=== PATIENT | male | born 1975 | race Caucasian/White ===

== ENCOUNTER → 2018-12-12 17:35 | Outpatient (CLI) | payer OTHER, SELFPAY ==
--- NOTE | 2018-12-12 | DI.MRI.S_ITS ---
PROCEDURE: MR HAND LT WO CON INDICATIONS: Pain at base of left thumb and between 3rd and 4th metacarpal TECHNIQUE: Noncontrast coronal T1 spin echo and T2 fast spin echo with fat saturation, axial proton density fast spin echo and T2 fast spin echo with fat saturation, sagittal T1 spin echo and STIR through the hand and fingers. COMPARISON: None. FINDINGS: Image quality: Excellent. Bones: The bones are normally aligned, without marrow contusions or fractures. No intra-osseous lesions. Interphalangeal joint(s): The accessory and proper collateral ligaments appear intact. The volar plate demonstrates normal morphology. The extensor central slips appear intact on sagittal images. Metacarpophalangeal joint(s): The accessory and proper collateral ligaments appear intact. There is edema involving the distal volar plate of first MTP joint units distal insertion suggestive of partial thickness tear in this area. Dorsal plate is intact. The sagittal bands of the extensor mabry appear normal. Extensor apparatus: The central slips insert normally on the middle phalangeal base. The conjoint and terminal tendons insert normally on the distal phalangeal bases. More proximal portions of the extensor tendons also appear normal. Flexor apparatus: The flexor digitorum superficialis and profundus tendons both appear intact in second through fifth digits. All annular and cruciform pulleys appear intact, without adjacent soft tissue edema. There is fluid surrounding tendon sheath of the flexor hallucis longus tendon at the level of the first MCP joint and first proximal phalangeal shaft, suggestive of low-grade tenosynovitis. Soft tissues: Visualized muscles demonstrate normal bulk and internal signal. No intramuscular masses identified. No ganglion cysts. IMPRESSION: 1. Finding is concerning for volar plate injury involving first MTP joint near its distal insertion on the first proximal phalange base. 2. Low-grade tenosynovitis involving the flexor hallux is longus tendon at the level of first MCP joint and first proximal phalange of shaft. 3. No marrow edema. No fracture or dislocation. 4. No gross abnormality is seen between the third and fourth metatarsal bone. Dictated by: Jonh Constantino M.D. on 12/13/2018 at 15:50 Approved by: Jonh Constantino M.D. on 12/13/2018 at 15:59
== END ==
PROVIDERS: Visit Provider Orthopaedic Surgery
DX: M79.645 Pain in left finger(s) (principal); M65.842 Other synovitis and tenosynovitis, left hand
CPT/HCPCS: 73218

== ENCOUNTER 2019-05-12 07:23 | Day surgery (SDC) | payer OTHER, SELFPAY ==
[2019-05-07 15:13] VITALS: BMI 26.3
[2019-05-12] VITALS (12 sets, daily range): BP systolic 112–130; BP diastolic 75–90; PULSE 61–82; RESP 12–18; TEMP 36.4–36.5; O2SAT 93–97; BMI 24.8
[2019-05-12] MEDS: LACTATED RINGERS 1,000 ML 42 ML IV ×2 (08:19→11:25)
--- NOTE | 2019-05-12 09:14 | PM.PREOP ---
Pre-operative Note Interval Note History & Physical reviewed/Exam performed by Physician: Yes Changes to H&P: No
[2019-05-12] MEDS: CEFAZOLIN 2 GM/100 ML FROZ.PIGGY IV (09:22)
--- NOTE | 2019-05-12 09:42 | SUR.OPER ---
Supine on padded OR bed, head on pillow, left arm is on arm table under control of surgeon and PA, right arm secured on padded arm boards at <90 degrees abduction, legs uncrossed, safety belt at thigh, tape over blanket over lower legs.
[2019-05-12] MEDS: BUPIVACAINE 0.5% W/ EPI (PF) VIAL 30 ML INJ (09:52)
--- NOTE | 2019-05-12 10:34 | PM.OP.1 ---
Operative Date/Time/Diagnoses Date of procedure: 05/12/19 Time of procedure: 09:30 Pre-op diagnosis: Left thumb volar plate rupture Post-op diagnosis: same Procedure & Clinicians Procedure: Left thumb volar plate repair Same procedure as scheduled: Yes Indications: Rupture of the volar plate to the left thumb MCP joint Surgeon: Phan Samano [employer] Sorter: Ingrid Diaz Click Yes if Unassisted: No Anesthesia Type: General Operative Notes Findings: Rupture of the volar plate from the by proximal phalanx Closure Type: primary Specimen(s): none sent Applied: implant(s) (2 Mitek suture anchors) Estimated Blood Loss (mL): 0 Blood products transfused: none Tourniquet time (min): 45 Procedure in detail: On date of service, patient was met in the holding area where his operative site was signed and witnessed by the OR staff. Surgeries once again discussed with the patient in remaining questions or concerns he had were answered fully. Patient was taken back to the operating theater and placed on the operating table in a supine position. Great care was taken to ensure that all bony prominences were appropriately padded. Well-padded tourniquet was placed up along the upper extremity and a time-out was performed verifying patient's name, procedure, and operative site. The left arm was then prepped and draped in the normal sterile fashion. A Clark type incision was made centered over the MCP joint. Fifteen blade was used to incise through skin only. Pickups and tenotomy scissors were used to dissect down bluntly. Digital nerves were identified and protected. A1 shara was opened giving us visualization of the FPL tendon. The FPL tendon was then retracted given us access to the volar aspect of the MCP joint. One could see injury to the volar plate insertion at the MCP joint. Using sharp dissection the volar plate was freed up off the proximal phalanx and the bony surface was cleared of any soft tissue for better overall healing. Two suture anchors were placed in the proximal phalanx. These were then used to repair the volar plate back to the proximal phalanx with the MCP joint held in 30? of flexion. This allowed a secure repair of the volar plate as well as stabilize the volar aspect of the joint and kept the MCP joint from going into hyperextension. The wound was then copiously irrigated and then closed in a layered fashion. Hand was cleaned dried dressed. Patient was splinted with the MCP joint in flexion. Patient was extubated and taken to the PACU in stable condition. Complications: none Post-operative Condition: stable Disposition: PACU Plan for aftercare: Patient will be immobilized for 2 weeks in a plaster splint. Patient will then be converted to a brace blocking extension. No limits to flexion. Patient will be unable to extend the last 30? for a total of 6 weeks.
[2019-05-12] MEDS: fentaNYL 100 MCG/2 ML INJ IV ×3 (10:51→11:23)
[2019-05-12] MEDS: HYDROCODONE/ACET 5/325 TABLET 1 TAB PO ×2 (11:07→11:50)
== END 2019-05-12 12:36 | disposition home or self-care (01) ==
PROVIDERS: Visit Provider Orthopaedic Surgery
PROC: (CPT 26516; principal; 2019-05-12 09:15)
DX: S63.642A Sprain of metacarpophalangeal joint of left thumb, initial encounter (principal); M18.12 Unilateral primary osteoarthritis of first carpometacarpal joint, left hand
CPT/HCPCS: 26516; J0690; J1100; J2405; J2704; J3010